=== PATIENT | female | born 1995 | race Two or more races ===

== ENCOUNTER 2023-01-23 16:19 | Emergency (ER) | payer OTHER ==
[~2023-01-23] VITALS: Ht 167.6 cm; Wt 106.5 kg
[2023-01-23 17:29] LABS: Urine Bacteria NONE SEEN /hpf (None Seen); Urine Blood Negative /uL (Negative); Urine Specific Gravity 1.029 (1.001-1.035); Urine WBC 1 /hpf (0 - 5)
[2023-01-23 17:52] LABS: Basophils # (auto) 0 10 ^3/uL (0-0.2); Basophils % (auto) 0.3 % (0.0-2.0); Eosinophils # (auto) 0.1 10 ^3/uL (0-0.8); Eosinophils % (auto) 0.7 % (0.0-7.0); Hematocrit 41.5 % (36.0-46.0); Hemoglobin 14.6 g/dL (12.2-16.2); Lymphocytes # (auto) 1.7 10 ^3/uL (0.4-5.4); Lymphocytes % (auto) 16.4 % (10.0-50.0); Mean Corpuscular Hemoglobin 30.5 pg (28.0-32.0); Mean Corpuscular Hgb Conc. 35.1 g/dL (32.0-36.0); Monocytes # (auto) 0.9 10 ^3/uL (0-1.3); Monocytes % (auto) 8.9 % (0.0-12.0); Neutrophils # (auto) 7.5 10 ^3/uL (1.6-8.6); Neutrophils % (auto) 73.7 % (37.0-80.0); Nucleated Red Blood Cells % 0.1 %; Red Blood Cells 4.78 10^6/uL (4.0-5.20); Red Cell Distribution Width 13.6 % (11.8-14.3); White Blood Cell 10.1 10^3/uL (4.4-10.8)
[2023-01-23 18:19] LABS: Albumin 3.9 g/dL (3.4-5.0); Calcium 9.4 mg/dL (8.5-10.1); Potassium 3.7 mmol/L (3.5-5.1)
[2023-01-23 18:23] LABS: BUN/Creatinine Ratio 26.2; Bilirubin, Total 1.2 mg/dL (0.2-1.0)
[2023-01-23] MEDS ORDERED: MAALOX PLUS or MAALOX 30 ML PO ONE (19:15)
[2023-01-23] MEDS ORDERED: LIDOCAINE VISCOUS 2% 15ML UD PO ONE (19:15)
[2023-01-23] MEDS ORDERED: KETOROLAC TROMETH 30 MG/ML 1ML VIAL IM ONE (19:15)
[2023-01-23] MEDS ORDERED: OMEP-434 PO (20:32)
[2023-01-23 21:28] VITALS: BP 104/61
== END 2023-01-23 21:31 | disposition home or self-care (01) ==
LOC: ER 16:19
DX: K29.70 Gastritis, unspecified, without bleeding (principal); E11.9 Type 2 diabetes mellitus without complications
CPT/HCPCS: 36415; 74176; 80053; 81001; 81025; 83690; 85025; 96372; 99285; J1885